=== PATIENT | female | born 1935 | race Hispanic/Latino ===

== ENCOUNTER → 2019-05-18 | Outpatient (CLI) | payer MEDICARE ==
[~2019-05-18] MED LIST: ACET-48 PO; ASPI-555 PO; CALC600T12 PO; CLOP75TA32 PO; FAMO40TA7 PO; FOLI0.8T PO; IBAN150T16 PO; LEVO50TA11 PO; LOSA100T58 PO; METF-444 PO; METO5TAB2 PO; SIMV20TA6 PO; VITAMIN D PO; fish oil PO; metoprolol PO; vitamin b12 PO
== END | disposition home or self-care (01) ==
LOC: SHCH 08:59
PROVIDERS: ATTEND Internal Medicine Cardiovascular Disease
DX: I11.9 Hypertensive heart disease without heart failure (principal); I65.23 Occlusion and stenosis of bilateral carotid arteries; I77.1 Stricture of artery
CPT/HCPCS: 93306; 93880; 93925

== ENCOUNTER 2020-01-19 05:30 | Day surgery (SDC) | payer MEDICARE ==
[2020-01-18 13:20] LABS: BASOPHILS % (AUTO) 0.6 % (0.0-5.0); EOSINOPHILS % (AUTO) 1.2 % (0.0-8.0); HEMATOCRIT 38.5 % (36-48); MEAN CORPUSCULAR VOLUME 93.9 fL (79-99); MONOCYTES % (AUTO) 9.2 % (3.0-13.0); NEUTROPHILS % (AUTO) 48.9 % (40.0-77.0); PLATELET COUNT (AUTO) 168 K/uL (130-400); RED CELL DISTRIBUTION WIDTH 12.2 % (11.0-15.5); WHITE BLOOD COUNT (AUTO) 6.8 K/uL (4.8-10.8)
[2020-01-18 13:32] LABS: POTASSIUM 3.7 mmol/L (3.5-5.1)
[2020-01-18 13:40] VITALS: BP 144/57
[2020-01-18 14:15] LABS: CREATININE 0.6 mg/dL (0.5-1.5)
--- NOTE | 2020-01-18 14:31 | NUR ---
nursing regarding pt on tb meds x4 weeks total called juan infection control and ok to proceed with surgery and no isolation necessary Addendum: 01/18/20 at 1432 by CORY MARTINEZ RN Amended: Links added.
[~2020-01-19] VITALS: Ht 141 cm; Wt 49.8 kg
[2020-01-19] VITALS (19 sets, daily range): BP systolic 110–158; BP diastolic 59–82
[~2020-01-19 05:30] MED LIST changes: -ACET-48 PO; +ACET-49 PO; +AMLO-257 PO; -ASPI-555 PO; +BUSP5TAB3 PO; +CA C1TAB74 PO; -CALC600T12 PO; +CALC600T15 PO; +CETI10TA57 PO; -FAMO40TA7 PO; +FURO20TA4 PO; -IBAN150T16 PO; +ISON300T17 PO; +METO25TA6 PO; -METO5TAB2 PO; +PYRI25TA4 PO; +SIMV-43 PO; -SIMV20TA6 PO; -VITAMIN D PO; -metoprolol PO
[2020-01-19] MEDS ORDERED: SODIUM CHLORIDE 0.9% 1000ML 1,000 ML IV ONE (05:38)
[2020-01-19] MEDS ORDERED: ACETIC ACID 0.25% 1,000 ML IRRIG.SOLN ONE (06:32)
[2020-01-19] MEDS ORDERED: STRONG IODINE SOLN 14ML BOTTLE ONE (06:32)
[2020-01-19] MEDS ORDERED: KETAMINE 50MG/ML SYRINGE 50 MG/ML DISP.SYRIN IV ONE (06:54)
[2020-01-19] MEDS ORDERED: DEXAMETHASONE SOD PHOSPHATE 10MG/ML 1ML VIAL ONE (06:56)
[2020-01-19] MEDS ORDERED: LIDOCAINE PF 2% 5ML ABBOJECT ONE (06:56)
[2020-01-19] MEDS ORDERED: FENTANYL CITRATE PF 50 MCG/1 ML 2ML VIAL ONE (06:57)
[2020-01-19] MEDS ORDERED: MIDAZOLAM HCL 1 MG/ML 2ML VIAL ONE (06:57)
[2020-01-19] MEDS ORDERED: ONDANSETRON HCL 4 MG/2 ML VIAL ONE ×2 (06:57→09:05)
[2020-01-19] MEDS ORDERED: PROPOFOL 10 MG/ML 20ML VIAL IV ONE (06:57)
[2020-01-19] MEDS ORDERED: ROCURONIUM 10MG/1ML SYR 10 MG/ML ML ONE (06:58)
[2020-01-19] MEDS ORDERED: EPHEDRINE SULFATE 50 MG/ML AMPULE ONE (07:17)
[2020-01-19] MEDS ORDERED: NEOSTIGMINE 5MG/5ML SYR IV ONE (07:43)
[2020-01-19] MEDS ORDERED: GLYCOPYRROLATE 1 MG/5 ML SYRINGE ONE (07:43)
[2020-01-19] MEDS ORDERED: CEFAZOLIN SODIUM 1 GM VIAL IVP ONE (08:00)
[2020-01-19] MEDS ORDERED: METOCLOPRAMIDE 10 MG/2 ML VIAL ONE (09:59)
== END 2020-01-19 10:44 | disposition home or self-care (01) ==
LOC: DAH 05:30
PROVIDERS: ATTEND Obstetrics & Gynecology
DX: D07.1 Carcinoma in situ of vulva (principal); I10 Essential (primary) hypertension; K21.9 Gastro-esophageal reflux disease without esophagitis; Z88.1 Allergy status to other antibiotic agents; Z98.890 Other specified postprocedural states; Z98.61 Coronary angioplasty status; Z79.899 Other long term (current) drug therapy; Z90.49 Acquired absence of other specified parts of digestive tract; Z90.710 Acquired absence of both cervix and uterus; Z82.49 Family history of ischemic heart disease and other diseases of the circulatory system; Z83.3 Family history of diabetes mellitus; Z82.3 Family history of stroke
CPT/HCPCS: 36415; 56620; 80048; 82948 ×2; 85025; 86850; 86900; 86901; 88305; 93005; A4215; A4221; A4222; A4223; A4351; A4606; A4663; A6260; J1100; J2001; J2250; J2405 ×2; J2704; J2710; J2765; J3010; J3490 ×3; J7030